=== PATIENT | male | born 1955 | race Caucasian/White ===

== ENCOUNTER 2017-12-27 21:22 | Emergency (ER) | payer OTHER ==
[~2017-12-27] VITALS: Ht 177.8 cm; Wt 127.0 kg
--- NOTE | ~2017-12-27 | EKG ---
[place], [place] ELECTROCARDIOGRAM REPORT NAME: MINI OLIVER UNIT #: [id number] ROOM: DOCTOR: GLORIA IBRAHIM MD BIRTHDATE: [birth year] DOS: 12/27/2017 TIME: 2149 hours. FINDINGS: 1. Normal sinus rhythm at 91 beats per minute. 2. The tracing is normal. 3. No previous tracing is available for comparison. GLORIA IBRAHIM MD CM:EKGRPT:ELECTROCARDIOGRAM REPORT [id number] GLORIA IBRAHIM MD
[~2017-12-27 21:22] MED LIST: FLONASE 0.05% 121 EA NAS; LISINOPRIL-HYDR1 TA1 PO; ULTRAM50 MG PO; ZITHROMAX Z PA250 MG PO
[2017-12-27 22:13] LABS: BASO # 0.1 10*3/uL (0.0-0.1); BASO % 0.8 % (0.0-1.0); EOS # 0.4 10*3/uL (0.0-0.4); EOS % 3.2 % (1.0-4.0); HEMATOCRIT 40.4 % (42.0-52.0); HEMOGLOBIN 13.8 g/dl (14.0-18.0); LYMPH # 2.8 10*3/uL (1.3-4.4); LYMPH % 24.6 % (27.0-41.0); MEAN CORPUSCULAR HGB 30.7 pg (27.0-31.0); MEAN CORPUSCULAR HGB CONC 34.2 g/dl (33.0-37.0); MEAN PLATELET VOLUME 10.8 fl (9.6-12.3); MONO % 9.1 % (3.0-9.0); NEUT # 7.1 10*3/uL (2.3-7.9); PLATELET COUNT AUTOMATED 201 10*3/uL (130-400); RED BLOOD COUNT 4.49 10*6/uL (4.50-5.90); RED CELL DISTRI WIDTH 13.4 % (0-14.5); WHITE BLOOD COUNT 11.4 10*3/uL (4.8-10.8)
[2017-12-27 22:23] LABS: INTERNATIONAL NORM RATIO 0.9 (2.0-3.5)
[2017-12-27 22:29] LABS: ALBUMIN 3.4 gm/dl (3.1-4.5); ALKALINE PHOSPHATASE 77 U/L (45-117); BUN 8 mg/dl (7-24); CHLORIDE 104 mmol/L (98-107); LIPASE 75 U/L (73-393); SGOT/AST 13 IU/L (3-35); SGPT/ALT 21 U/L (12-78); SODIUM 138 mmol/L (136-145); TOTAL PROTEIN 7.8 gm/dL (6.4-8.2); TROPONIN I < 0.015 ng/ml (<0.045)
[2017-12-27] MEDS ORDERED: Lopressor25 MG PO (23:11)
[2017-12-27 23:20] LABS: BILIRUBIN NEGATIVE (NEGATIVE); BLOOD NEGATIVE (NEGATIVE); CLARITY CLEAR (CLEAR); COLOR YELLOW (YELLOW); GLUCOSE NEGATIVE (NEGATIVE); KETONE NEGATIVE (NEGATIVE); LEUKO ESTERASE NEGATIVE (NEGATIVE); NITRITE NEGATIVE (NEGATIVE); SPECIFIC GRAVITY 1.015 (1.005-1.030); UROBILINOGEN 0.2 E.U./dl (0.2-1.0)
[2017-12-27 23:28] LABS: BACTERIA TRACE; WBC 0-2 wbc/hpf (0-5)
== END 2017-12-28 00:04 | disposition home or self-care (01) ==
LOC: ED 21:22
PROVIDERS: Emergency Medicine Emergency Medical Services
DX: I10 Essential (primary) hypertension (principal); R05 Cough; R11.0 Nausea; J45.909 Unspecified asthma, uncomplicated; Z88.0 Allergy status to penicillin; Z79.899 Other long term (current) drug therapy

== ENCOUNTER 2019-08-09 22:33 | Emergency (ER) | payer MEDICARE ==
[~2019-08-09 22:33] MED LIST changes: +Lopressor25 MG PO
[2019-08-09] MEDS ORDERED: ATORVASTATIN CA10 M1 PO (22:39)
[2019-08-09] MEDS ORDERED: HYDROCHLOROTHIA25 M1 PO (22:39)
[2019-08-09] MEDS ORDERED: MONTELUKAST SOD10 MG PO (22:39)
[2019-08-09] MEDS ORDERED: LISINOPRIL30 MG PO (22:39)
[2019-08-09] MEDS ORDERED: GOOD NEIGHBOR L10 MG PO (22:39)
[2019-08-09] MEDS ORDERED: PROAIR HFA8.5 GM INH (22:40)
[2019-08-10 00:57] LABS: BASO # 0.1 10*3/uL (0.0-0.1); BASO % 0.8 % (0.0-1.0); EOS # 0.3 10*3/uL (0.0-0.4); EOS % 2.3 % (1.0-4.0); HEMATOCRIT 42.8 % (42.0-52.0); HEMOGLOBIN 14.3 g/dl (14.0-18.0); LYMPH # 3.7 10*3/uL (1.3-4.4); LYMPH % 30.1 % (27.0-41.0); MEAN CELL VOLUME 93.2 fl (80.0-94.0); MEAN CORPUSCULAR HGB 31.2 pg (27.0-31.0); MEAN CORPUSCULAR HGB CONC 33.4 g/dl (33.0-37.0); MEAN PLATELET VOLUME 10.7 fl (9.6-12.3); MONO % 8.4 % (3.0-9.0); NEUT # 7.2 10*3/uL (2.3-7.9); PLATELET COUNT AUTOMATED 222 10*3/uL (130-400); RED BLOOD COUNT 4.59 10*6/uL (4.50-5.90); RED CELL DISTRI WIDTH 13.6 % (0-14.5); WHITE BLOOD COUNT 12.4 10*3/uL (4.8-10.8)
[2019-08-10 01:13] LABS: ALBUMIN 3.8 gm/dl (3.1-4.5); ALKALINE PHOSPHATASE 73 U/L (45-117); BUN 14 mg/dl (7-24); CHLORIDE 104 mmol/L (98-107); CREATININE 0.81 mg/dL (0.70-1.30); LIPASE 78 U/L (73-393); POTASSIUM 4.3 mmol/L (3.5-5.1); SGOT/AST 13 IU/L (3-35); SGPT/ALT 25 U/L (12-78); SODIUM 138 mmol/L (136-145)
[2019-08-10 01:19] LABS: BILIRUBIN NEGATIVE (NEGATIVE); BLOOD NEGATIVE (NEGATIVE); CLARITY CLEAR (CLEAR); COLOR YELLOW (YELLOW); GLUCOSE NEGATIVE (NEGATIVE); KETONE NEGATIVE (NEGATIVE); LEUKO ESTERASE NEGATIVE (NEGATIVE); NITRITE NEGATIVE (NEGATIVE); UROBILINOGEN 0.2 E.U./dl (0.2-1.0)
[2019-08-10 01:32] LABS: BACTERIA TRACE; MUCOUS 2+; WBC 0-2 wbc/hpf (0-5)
[2019-08-10] MEDS ORDERED: DICYCLOMINE HCL20 MG PO (03:42)
== END 2019-08-10 03:54 | disposition home or self-care (01) ==
LOC: ED 22:33
PROVIDERS: Emergency Medicine Emergency Medical Services
DX: K80.20 Calculus of gallbladder without cholecystitis without obstruction (principal); K57.30 Diverticulosis of large intestine without perforation or abscess without bleeding; I10 Essential (primary) hypertension; Z98.890 Other specified postprocedural states; Z79.899 Other long term (current) drug therapy; Z88.0 Allergy status to penicillin